=== PATIENT | female | born 1955 | race Caucasian/White ===

== ENCOUNTER → 2016-12-28 | Outpatient (CLI) | payer BC ==
--- NOTE | 2016-12-28 07:36 | MR ---
EXAMINATION TYPE: MR knee RT wo con DATE OF EXAM: 12/28/2016 6:45 AM COMPARISON: NONE HISTORY: 61-year-old female with arthralgia of right knee, monoarthritis of right knee TECHNIQUE: Multiplanar, multisequence imaging of the right knee is performed without IV contrast. FINDINGS: There is a small 4 mm intrasubstance tear at the tibial insertion of the ACL; ACL otherwise intact. T he PCL, MCL, and LCL complex are intact. Evaluation of the lateral meniscus shows inner margin tearing extending to involve the anterior horn and body of the meniscus. No displaced meniscal fragment. There is severe full-thickness cartilage lo ss focally along the mid weightbearing lateral femoral condyle measuring approximately 6 mm wide and 7 mm AP dimension with subchondral bony irregularity, focal intense subchondral bone marrow edema, an d an intercondylar spur also noted in this region. Marginal spurring is present. Evaluation of the medial meniscus shows no evidence for tear. There is marginal spurring within the m edial compartment with mild superficial cartilage irregularity along the medial femoral condyle but n o high-grade cartilage lesion. Evaluation of the patellofemoral compartment shows marginal spurring with moderate irregular cartilag e loss along the medial patellar facet and more severe along the medial trochlear facet. Extensor mechanism is intact. There is trace knee joint effusion and an elongated Clark's cyst measuring 6.0 cm long and 1.1 cm AP dimension. There is some internal complexity with synovial proliferation and debris. There is a small 4 mm loose body within the anterior knee joint in front of the ACL. Normal popliteal artery anatomy and muscle bulk. No suspicious bone marrow replacement. IMPRESSION: 1. Focal 6 x 7 mm high-grade chondral defect involving the mid weightbearing lateral femoral condyle with intense underlying bone marrow edema, possible osteochondral injury. 2. Inner margin tearing of the anterior horn and body of the lateral meniscus. 3. Small 4 mm intrasubstance tear at the tibial insertion of the ACL. Otherwise, no cruciate/collater al ligament tear. 4. Moderate overall patellofemoral compartment osteoarthrosis with relatively severe cartilage loss a long the medial patellar and trochlear facets. 5. A 6 cm elongated Clark's cyst and a small 4 mm anterior loose body.
== END | disposition home or self-care (01) ==
LOC: RADMRIMAIN 06:09
PROVIDERS: ATTEND Orthopaedic Surgery
DX: S83.281A Other tear of lateral meniscus, current injury, right knee, initial encounter (principal); S83.511A Sprain of anterior cruciate ligament of right knee, initial encounter; M17.11 Unilateral primary osteoarthritis, right knee; M71.21 Synovial cyst of popliteal space [Baker], right knee

== ENCOUNTER → 2018-01-28 | Outpatient (CLI) | payer BC ==
--- NOTE | 2018-01-28 20:03 | US ---
EXAMINATION TYPE: US extremity nonvascular ltd left hip. DATE OF EXAM: 01/28/2018 COMPARISON: NONE CLINICAL HISTORY: 62-year-old female M17.0 Primary Osteoarthritis, M25.552 L Hip pain. Left hip pain TECHNIQUE: Multiple sonographic images of the left hip region were obtained. 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 Initial images taken lateral to the left femor al head. No specific abnormality is seen within the periarticular soft tissues. IMPRESSION: 1. No sizable left hip joint effusion. 2. Consider radiographic or MRI correlation depending on patient symptoms and clinical indication.
== END | disposition home or self-care (01) ==
LOC: RADMRIMAIN 16:08
PROVIDERS: ATTEND Family Medicine
DX: M25.552 Pain in left hip (principal); M17.0 Bilateral primary osteoarthritis of knee

== ENCOUNTER → 2018-02-12 | Outpatient (CLI) | payer BC ==
--- NOTE | 2018-02-12 08:37 | MR ---
EXAMINATION TYPE: MR knee RT wo con DATE OF EXAM: 02/12/2018 COMPARISON: 12/28/2016 HISTORY: Bilateral primary osteoarthritis of knee TECHNIQUE: Multiplanar, multisequence imaging of the right knee is performed without IV contrast. FINDINGS: There is a small 4 mm intrasubstance tear at the tibial insertion of the ACL; ACL otherwise intact. T he PCL, MCL, and LCL complex are intact. Evaluation of the lateral meniscus shows inner margin tearing extending to involve the anterior horn and body of the meniscus. No displaced meniscal fragment. There is severe full-thickness cartilage lo ss focally along the mid weightbearing lateral femoral condyle measuring approximately 6 mm wide and 7 mm AP dimension with subchondral bony irregularity, focal intense subchondral bone marrow edema, an d an intercondylar spur also noted in this region. Marginal spurring is present. Evaluation of the medial meniscus demonstrates a linear area of abnormal signal within the posterior horn suggestive of a simple linear tear. There is marginal spurring within the medial compartment wit h mild superficial cartilage irregularity along the medial femoral condyle but no high-grade cartilag e lesion. Evaluation of the patellofemoral compartment shows marginal spurring with moderate irregular cartilag e loss along the medial patellar facet and more severe along the medial trochlear facet. Extensor mechanism is intact. There is trace knee joint effusion and an elongated Clark's cyst measuring 6.0 cm long and 1.1 cm AP dimension. There is some internal complexity with synovial proliferation and debris. There is a small 4 mm loose body within the anterior knee joint in front of the ACL reported on the previous exam is not as well-seen on today's exam. IMPRESSION: 1. Focal 6 x 7 mm high-grade chondral defect involving the mid weightbearing lateral femoral condyle with intense underlying bone marrow edema, possible osteochondral injury. Finding is stable correlate for osteochondritis. 2. Inner margin tearing of the anterior horn and body of the lateral meniscus. 3. Small 4 mm intrasubstance tear at the tibial insertion of the ACL. Finding is stable. 4. Moderate overall patellofemoral compartment osteoarthrosis with relatively severe cartilage loss a long the medial patellar and trochlear facets. 5. A 6 cm elongated Clark's cyst and a small 4 mm anterior loose body. Findings stable. #7 there also appears to be simple linear tear posterior horn medial meniscus
== END | disposition home or self-care (01) ==
LOC: RADMRIMAIN 07:46
PROVIDERS: ATTEND Family Medicine
DX: M17.11 Unilateral primary osteoarthritis, right knee (principal); S83.511A Sprain of anterior cruciate ligament of right knee, initial encounter; S83.281A Other tear of lateral meniscus, current injury, right knee, initial encounter; M71.21 Synovial cyst of popliteal space [Baker], right knee

== ENCOUNTER → 2023-05-07 | Outpatient (CLI) | payer MEDICARE ==
[2023-05-08 03:05] LABS: Basophils # (A) 0.04 X 10*3/uL (0.00-0.10); Basophils % (A) 0.6 %; Eosinophils # (A) 0.43 X 10*3/uL (0.04-0.35); HCT 40.4 % (37.2-46.3); HGB 12.2 d/dL (12.0-15.0); Lymphocytes # (A) 2.46 X 10*3/uL (0.90-5.00); Lymphocytes % (A) 34.1 %; MCH 25.8 pg (27.0-32.0); MCHC 30.2 d/dL (32.0-37.0); MCV 85.6 FL (80.0-97.0); Monocytes # (A) 0.74 X 10*3/uL (0.20-1.00); Monocytes % (A) 10.2 %; NRBC Per 100 WBC 0 X 10*3/uL (0.00-0.01); Neutrophils # (A) 3.54 X 10*3/uL (1.80-7.70); Platelet Count 267 X 10*3/uL (140-440); RBC 4.72 X 10*6/uL (4.10-5.20); RDW 14.3 % (11.5-14.5); WBC 7.22 X 10*3/uL (4.50-10.00)
== END | disposition home or self-care (01) ==
LOC: LABWHC1 16:26
PROVIDERS: ATTEND Internal Medicine
DX: M19.90 Unspecified osteoarthritis, unspecified site (principal)
CPT/HCPCS: 36415; 82785; 85025

== ENCOUNTER → 2023-12-18 | Outpatient (CLI) | payer MEDICARE ==
[2023-12-18 08:30] LABS: Basophils % (A) 0 %; Eosinophils # (A) 0.6 k/uL (0-0.7); Eosinophils % (A) 6 %; HCT 42.3 % (34.0-46.0); HGB 13.9 gm/dL (11.4-16.0); Lymphocytes # (A) 1.6 k/uL (1.0-4.8); Lymphocytes % (A) 15 %; MCH 27.8 pg (25.0-35.0); MCHC 32.9 g/dL (31.0-37.0); MCV 84.6 fL (80.0-100.0); Mean Platelet Volume 7.9; Monocytes # (A) 0.7 k/uL (0-1.0); Monocytes % (A) 7 %; Neutrophils # (A) 7.1 k/uL (1.3-7.7); Neutrophils % (A) 71 %; Platelet Count 216 k/uL (150-450); RDW 13.4 % (11.5-15.5); WBC 10.1 k/uL (3.8-10.6)
[2023-12-18 08:39] LABS: Total Eosinophil Count 564 #EOS/uL (150-300)
[2023-12-19 00:23] LABS: Alternaria alternata IgE <0.10 kU/L; Aspergillus fumagatus IgE <0.10 kU/L; Cat Epith & Dander IgE <0.10 kU/L; Cladosporian herbarum IgE <0.10 kU/L; Cockroach IgE <0.10 kU/L; Dermato. farinae IgE <0.10 kU/L; Dog Dander IgE <0.10 kU/L; Elm IgE 0.14 kU/L; Oak IgE 0.66 kU/L; Ragweed,Common IgE 0.35 kU/L
[2023-12-19 00:50] LABS: Immunoglobulin E 8.43 IU/mL (0.00-114.00)
== END | disposition home or self-care (01) ==
LOC: LABWHC1 07:36
PROVIDERS: ATTEND Internal Medicine
DX: J45.50 Severe persistent asthma, uncomplicated (principal)
CPT/HCPCS: 36415; 82785; 85008; 85025; 86003